=== PATIENT | male | born 1965 | race Caucasian/White ===

== ENCOUNTER 2024-06-12 14:23 | Inpatient (IN) | payer OTHER, SELFPAY ==
--- NOTE | ~2024-06-12 | XR_ITS ---
SMALL BOWEL SERIES Ordering provider: Vincenzo Perera MD History: . SBO, use water soluble contrast via NGT . Comparison: None Technique: The patient was given oral barium. Overhead images were obtained immediately and at 15 min [place] intervals until contrast arrived in the cecum. FINDINGS: CARE MGR FILM: Nonobstructive bowel gas pattern. No organomegaly. No pathologic calcifications. Residual contrast is seen in the urinary bladder. TRANSIT TIME FOR CONTRAST THROUGH THE SMALL BOWEL: 90 minutes which is within normal limits. STOMACH AND DUODENUM: Normal. JEJUNUM AND ILEUM: No intrinsic or extrinsic mass effect, mucosal abnormality, stricture, or sign of obstruction. IMPRESSION: No evidence of obstruction seen. Contrast is seen in the large bowel. Reviewed, dictated and finalized at location A.
--- NOTE | ~2024-06-12 | XR_ITS ---
EXAM: XR abdomen gastric tube insert DATE: 06/12/2024 18:05 HISTORY: ng tubeplacement . COMPARISON: CT abdomen pelvis 06/12/2024. FINDINGS: Mild dependent scar/atelectasis. Right chest pacer/AICD, with intact lead. Intact sternoto my wires. Atrial occlusion device. Mediastinal surgical clips. Cholecystectomy clips. Multiple loops of dilated small bowel in the right abdomen. No organomegaly. No abnormal abdominal calcification. Re gional bones and soft tissues normal for age. NG tube, tip and side port project over the gastric fun dus. IMPRESSION: NG tube, in good position. Reviewed, dictated and finalized at location K. IMPRESSION: NG tube, in good position.
--- NOTE | ~2024-06-12 | CT_ITS ---
EXAMINATION: CT abdomen pelvis w con DATE: 06/12/2024 15:45 INDICATION: lower abd pain, n/v/d TECHNIQUE: Computed tomography (CT) of the abdomen and pelvis was performed with 100 mL Omnipaque-350 intravenous contrast. Automated exposure control and iterative reconstruction technique were employe d. The dose-length product was 401.97 mGy-cm. COMPARISON: None. FINDINGS: Lower thorax: Coronary artery calcifications. Pacer/AICD wire. Mild cardiac megaly. Bilateral symmetr ic gynecomastia. Liver: Subcentimeter right lobe hypodensity, too small to characterize but likely represents a cyst o r hemangioma. Biliary/Gallbladder: Gallbladder is absent. No bile duct dilation. Pancreas: No mass or duct dilation. Spleen: Normal. Adrenals:No mass. Kidneys: No suspicious mass, obstructing stone, or hydronephrosis. Subcentimeter right upper pole hyp odensity, too small to characterize but likely represents a cyst. GI tract: Several loops of dilated small bowel in the left lower abdomen, with adjacent transition po ints (axial image 97/220 and 104/220). Mild small bowel dilation noted proximal to this obstruction, with a gradual transition to normal caliber proximal small bowel. No appendiceal dilation, apparent f atty deposition within the appendiceal mucosa. Mesentery/Peritoneum: No ascites, mass, or free air. Retroperitoneum: No mass. Atherosclerotic calcifications of intra-abdominal arterial vessels. Pelvis: Partially distended urinary bladder with moderate wall thickening. Marked prostatomegaly trac e free pelvic fluid. Soft Tissues: Small uncomplicated fat-containing left inguinal hernia. Surgical clips over the over t he distal left spermatic cord. Bones: No acute osseous finding. IMPRESSION: Findings concerning for a C-loop-type small bowel obstruction, possibly due to adhesion or internal h ernia. No CT evidence of bowel ischemia/infarction. Bladder wall thickening which may be secondary to cystitis or outlet obstruction from prostatomegaly. Results reported telephonically to Zandra Good PA-C by Dr. Dhaliwal at 4:15 PM on 06/12/2024. Reviewed, dictated and finalized at location K. IMPRESSION: Findings concerning for a C-loop-type small bowel obstruction, possibly due to adhesion or internal hernia. No CT evidence of bowel ischemia/infarction. Bladder wall thickening which may be secondary to cystitis or outlet obstructio n from prostatomegaly. Results reported telephonically to Zandra Good PA-C by Dr. Dhaliwal at 4:1 5 PM on 06/12/2024.
[2024-06-12 14:25] VITALS: BP 140/90; PULSE 67; RESP 16; TEMP 36.6; O2SAT 99
--- NOTE | 2024-06-12 15:10 | PC.NURSE ---
Pt. states he is unable to produce a urine sample at this time but will press his call light when he can.
[2024-06-12 15:14] LABS: Basophils Percent Auto 0.2 % (0.2-1.2); Eosinophils Percent Auto 0.1 % (0-4.4); Hematocrit 43.1 % (42.0-52.0); Hemoglobin 13.8 g/dL (14.0-18.0); Immature Granulocyte Absolute 0.05 K/mm3 (0.00-0.031); Immature Granulocyte Percent A 0.5 % (0-0.5); Lymphocytes Absolute Auto 1.18 K/mm3 (0.9-3.2); Lymphocytes Percent Auto 10.9 % (18.3-44.2); Mean Corpuscular Hemoglobin 29.2 pg (26-34); Mean Corpuscular Volume 91.3 fl (80-100); Monocytes Absolute Auto 0.5 K/mm3 (0.1-0.6); Monocytes Percent Auto 4.2 % (2.6-8.5); Neutrophils Absolute Auto 9.1 K/mm3 (1.3-6.7); Neutrophils Percent Auto 84.1 % (45.5-73.1); Platelet Count Result 263 k/mm3 (150-375); Red Blood Count 4.72 M/mm3 (4.6-6.20); Red Cell Distribution Width 13.6 % (11.5-14.5); White Blood Count 10.8 K/mm3 (4.5-10.0)
[2024-06-12 15:25] LABS: Alanine Aminotransferase 25 U/L (6-50); Albumin Level 4.8 g/dL (3.5-5.1); Alkaline Phosphatase 97 U/L (38-126); Anion Gap 10 mmol/L (4-12); Aspartate Amino Transferase 24 U/L (17-59); Bilirubin,Total 0.5 mg/dL (0.2-1.3); Blood Urea Nitrogen 17 mg/dL (9-20); Calcium 9.5 mg/dL (8.4-10.2); Carbon Dioxide 28 mmol/L (22-30); Chloride 103 mmol/L (98-107); Estimated CRCL calculation 69 ml/min; Estimated Glomerular Filt Rate > 60; Glucose 116 mg/dL (65-110); Lipase 51 U/L (23-300); Potassium 3.9 mmol/L (3.4-5.0); Sodium 141 mmol/L (137-145)
[2024-06-12] MEDS: SODIUM CHLORIDE 0.9% IV 1,000 ML 999 ML IV CONT (15:51)
[2024-06-12] MEDS: ONDANSETRON INJ 4 MG/2 ML VIAL IV PUSH ×2 (15:52→17:44)
[2024-06-12] MEDS: MORPHINE SULFATE (*CRX) 4 MG/ML INJ IV PUSH (15:52)
--- NOTE | 2024-06-12 16:04 | ED.ABDPAIN ---
HPI - Abdominal Pain General Chief Complaint: Abdominal Pain <MANDA Vilchis Last Filed: 06/12/24 22:09> Stated Complaint: abd pain <MANDA Vilchis Last Filed: 06/12/24 22:09> Time Seen by Provider: 06/12/24 14:47 <Zandra Good PA-C - Last Filed: 06/12/24 22:09> Source: patient <MANDA Vilchis Last Filed: 06/12/24 22:09> Mode of arrival: ambulatory <MANDA Vilchis Last Filed: 06/12/24 22:09> Limitations: no limitations <MANDA Vilchis Last Filed: 06/12/24 22:09> History of Present Illness HPI narrative: Patient is a 58-year-old male who presents the ED with report of lower abdominal pain. Patient reports pain began this morning upon waking. Has been constant since the onset. Has not tried anything for pain. Worse with movement. He also reports nausea, vomiting, diarrhea. Denies fevers. Denies urinary complaints. Denies history of similar pain. Denies sick contacts or bad food exposure. <MANDA Vilchis Last Filed: 06/12/24 22:09> Related Data Home Medications: Home Medications ?Medication ?Instructions ?Recorded ?Confirmed ?Last Taken ?Type aspirin 81 mg capsule 81 mg PO DAILY 06/12/24 06/12/24 06/12/24 History atorvastatin 80 mg tablet 80 mg PO QPM 06/12/24 06/12/24 06/11/24 History dapagliflozin propanediol 10 mg 10 mg PO DAILY 06/12/24 06/12/24 06/12/24 History tablet (Farxiga) furosemide 20 mg tablet 20 mg PO DAILY 06/12/24 06/12/24 06/12/24 History metoprolol succinate 25 mg 25 mg PO HS 06/12/24 06/12/24 06/11/24 History tablet,extended release 24 hr midodrine 5 mg tablet 5 mg PO TIDWM 06/12/24 06/12/24 06/12/24 History sacubitril 24 mg-valsartan 26 mg 1 tablet PO BID 06/12/24 06/12/24 06/12/24 History tablet (Entresto) sertraline 100 mg tablet 100 mg PO DAILY 06/12/24 06/12/24 06/12/24 History spironolactone 25 mg tablet 25 mg PO DAILY 06/12/24 06/12/24 06/12/24 History <Zandra Good PA-C - Last Filed: 06/12/24 22:09> Allergies/Adverse Reactions: Allergies Allergy/AdvReac Type Severity Reaction Status Date / Time No Known Allergies Allergy Verified 06/12/24 14:29 <Zandra Good PA-C - Last Filed: 06/12/24 22:09> Review of Systems Review of Systems: All systems reviewed & are unremarkable except as noted in HPI. 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 Testicular cancer Hyperlipidemia Coronary artery disease <Zandra Good PA-C - Last Filed: 06/12/24 22:09> Surgical History Surgical History: Surgical History S/P internal cardiac defibrillator procedure <Zandra Good PA-C - Last Filed: 06/12/24 22:09> Social History Social History: Social History Smoking status: Never smoker Alcohol intake: current Drinks per week: 3 Alcohol use details: wine on the weekends Substance use: never Do You Feel Safe in your Home?: Yes Lack of Transportation: No Lack of Food: Never True Current Housing: I Have Housing Concerned About Future Housing: No Difficulty Paying Gas/Electric Bills: No Difficulty Paying for Meds: No Currently Unemployed: No Education: Don't Know Difficulty w/ Childcare or Family Care: No Spiritual care concerns: No <Zandra Good PA-C - Last Filed: 06/12/24 22:09> Exam Narrative: GENERAL: Mildly uncomfortable appearing, well-nourished, non-toxic, in no acute distress. HEAD: Normocephalic, atraumatic. RESPIRATORY: Airway patent, respirations nonlabored. Clear to auscultation bilaterally, no rales, rhonchi, wheezing. CARDIOVASCULAR: Regular rate and rhythm without murmurs, rubs, or gallops. ABDOMINAL: Soft, diffuse tenderness throughout lower abdomen, worst in the left lower quadrant. No significant McBurney's point tenderness, negative Rovsing. Nondistended. Normoactive BS. MUSCULOSKELETAL: Moves all extremities. No gross deformities. SKIN: Warm, dry, normal color. NEURO: A&O X3. Speech clear. PSYCHIATRIC: Appropriate mood and affect. Normal interaction. <Zandra Good PA-C - Last Filed: 06/12/24 22:09> Course SPORTS MARKETING COORDINATOR/PA Physician Supervision For this patient encounter, I reviewed the SPORTS MARKETING COORDINATOR or PA documentation, treatment plan, and medical decision making; and I had [id number] time with this patient. <Domenico Agrawal MD - Last Filed: 06/13/24 19:05> Vital Signs Vital signs: Vital Signs Temperature 97.9 F 06/12/24 14:25 Pulse Rate 67 06/12/24 14:25 Respiratory Rate 16 06/12/24 14:25 Blood Pressure 140/90 06/12/24 14:25 Pulse Oximetry 99 06/12/24 14:25 Oxygen Delivery Room Air 06/12/24 14:25 Temperature 98.3 F 06/13/24 14:00 Pulse Rate 65 06/13/24 14:00 Respiratory Rate 16 06/13/24 14:00 Blood Pressure 148/67 H 06/13/24 14:00 Pulse Oximetry 100 06/13/24 14:00 Oxygen Delivery Room Air 06/12/24 23:28 Fraction of Inspired Oxygen 21 06/12/24 23:28 <Zandra Good PA-C - Last Filed: 06/12/24 22:09> Vital Signs Temperature 97.9 F 06/12/24 14:25 Pulse Rate 67 06/12/24 14:25 Respiratory Rate 16 06/12/24 14:25 Blood Pressure 140/90 06/12/24 14:25 Pulse Oximetry 99 06/12/24 14:25 Oxygen Delivery Room Air 06/12/24 14:25 Temperature 98.3 F 06/13/24 14:00 Pulse Rate 65 06/13/24 14:00 Respiratory Rate 16 06/13/24 14:00 Blood Pressure 148/67 H 06/13/24 14:00 Pulse Oximetry 100 06/13/24 14:00 Oxygen Delivery Room Air 06/12/24 23:28 Fraction of Inspired Oxygen 21 06/12/24 23:28 <Domenico Agrawal MD - Last Filed: 06/13/24 19:05> MDM - Abdominal Pain MDM Narrative Medical decision making narrative: Patient presented to ED with lower abdominal pain that began this morning. Associated with N/V/D. Vital signs are stable upon arrival. Patient mildly uncomfortable appearing. Will give pain control. Cbc with blood cell count of 10.8. Stable H&H. CMP is unremarkable. Stable kidney function. Normal LFTs and lipase. Viral swabs negative. UA w/o evidence of infection. CT scan of abdomen/pelvis was obtained and showing c loop small-bowel obstruction. Likely due to adhesions or internal hernia. No evidence of bowel ischemia or infarction. Lactic acid added on and WNL at 1.4. Patient updated on lab and imaging findings. Discussed NG tube. Patient is agreeable. Patient has history of previous cholecystectomy, denies any other abdominal surgeries. No previous history of bowel obstruction. Discussed case with Dr. Perera, general surgery, will consult. Agrees w/ plan for ng, abx, npo. Zosyn started in the ED. Patient will be admitted for further evaluation. Discussed case with Jeni Dye SPORTS MARKETING COORDINATOR Hospitalist, accepted patient for admission. Patient and family in agreement with plan and need for admission. <Zandra Good PA-C - Last Filed: 06/12/24 22:09> Medical Records Attestation: I reviewed the patient's medical records. <Zandra Good PA-C - Last Filed: 06/12/24 22:09> Lab Data Attestation: I reviewed the patient's lab results. <Zandra Good PA-C - Last Filed: 06/12/24 22:09> Result diagrams: 06/13/24 05:54 06/13/24 05:54 <Zandra Good PA-C - Last Filed: 06/12/24 22:09> Labs: Lab Results 06/12/24 06/12/24 06/12/24 Range/Units 15:07 15:47 17:40 WBC 10.8 H (4.5-10.0) K/mm3 RBC 4.72 (4.6-6.20) M/mm3 Hgb 13.8 L (14.0-18.0) g/dL Hct 43.1 (42.0-52.0) % MCV 91.3 (80-100) fl MCH 29.2 (26-34) pg MCHC 32.0 (32-36) g/dl RDW 13.6 (11.5-14.5) % Plt Count 263 (150-375) k/mm3 MPV 11.0 H (7.4-10.4) fl Immature Gran % (Auto) 0.5 (0-0.5) % Neut % (Auto) 84.1 H (45.5-73.1) % Lymph % (Auto) 10.9 L (18.3-44.2) % [place] % (Auto) 4.2 (2.6-8.5) % Eos % (Auto) 0.1 (0-4.4) % Baso % (Auto) 0.2 (0.2-1.2) % Lymph # (Auto) 1.18 (0.9-3.2) K/mm3 [place] # (Auto) 0.5 (0.1-0.6) K/mm3 Eos # (Auto) 0.0 (0-0.3) K/mm3 Baso # (Auto) 0.0 (0.0-0.1) K/mm3 Abs Immat Gran (auto) 0.05 H (0.00-0.031) K/mm3 Absolute Neuts (auto) 9.1 H (1.3-6.7) K/mm3 Absolute Nucleated RBC 0.000 (0.0-0.012) K/mm3 Nucleated RBC % 0.0 (0.0-0.2) % PT (11.1-14.7) Seconds INR Sodium 141 (137-145) mmol/L Potassium 3.9 (3.4-5.0) mmol/L Chloride 103 (98-107) mmol/L Carbon Dioxide 28 (22-30) mmol/L Anion Gap 10 (4-12) mmol/L BUN 17 (9-20) mg/dL Creatinine 1.04 (0.7-1.3) mg/dL Estim Creat Clear Calc 69 ml/min Estimated GFR > 60 (59 - ) Glucose 116 H (65-110) mg/dL Lactic Acid 1.4 (0.7-2.0) mmol/L Calcium 9.5 (8.4-10.2) mg/dL Total Bilirubin 0.5 (0.2-1.3) mg/dL AST 24 (17-59) U/L ALT 25 (6-50) U/L Alkaline Phosphatase 97 (38-126) U/L Total Protein 8.0 (6.3-8.2) g/dL Albumin 4.8 (3.5-5.1) g/dL Lipase 51 (23-300) U/L Urine Color Yellow (Yellow) Urine Appearance Clear (Clear) Urine pH 6.0 (5.0-9.0) Ur Specific L[place] > 1.045 H (1.001-1.035) Urine Protein Negative (Negative) mg/dL Urine Glucose (UA) 3+ H (Negative) mg/dL Urine Ketones Negative (Negative) mg/dL Ur Blood (Man) Negative (Negative) Urine Nitrate Negative (Negative) Urine Bilirubin Negative (Negative) Urine Urobilinogen 0.2 (<2.0) mg/dL Leukocyte Esterase Rfl Negative (Negative) BRENT/UL Influenza A (RT-PCR) Negative (Negative) Influenza B (RT-PCR) Negative (Negative) RSV (RT-PCR) Negative (Negative) SARS-CoV-2 RNA (RT-PCR) Negative (Negative) Blood Type Antibody Screen 06/13/24 Range/Units 05:54 WBC 6.9 (4.5-10.0) K/mm3 RBC 4.18 L (4.6-6.20) M/mm3 Hgb 12.1 L (14.0-18.0) g/dL Hct 39.0 L (42.0-52.0) % MCV 93.3 (80-100) fl MCH 28.9 (26-34) pg MCHC 31.0 L (32-36) g/dl RDW 14.0 (11.5-14.5) % Plt Count 209 (150-375) k/mm3 MPV 10.7 H (7.4-10.4) fl Immature Gran % (Auto) 0.3 (0-0.5) % Neut % (Auto) 67.4 (45.5-73.1) % Lymph % (Auto) 22.2 (18.3-44.2) % [place] % (Auto) 8.9 H (2.6-8.5) % Eos % (Auto) 0.9 (0-4.4) % Baso % (Auto) 0.3 (0.2-1.2) % Lymph # (Auto) 1.54 (0.9-3.2) K/mm3 [place] # (Auto) 0.6 (0.1-0.6) K/mm3 Eos # (Auto) 0.1 (0-0.3) K/mm3 Baso # (Auto) 0.0 (0.0-0.1) K/mm3 Abs Immat Gran (auto) 0.02 (0.00-0.031) K/mm3 Absolute Neuts (auto) 4.7 (1.3-6.7) K/mm3 Absolute Nucleated RBC 0.000 (0.0-0.012) K/mm3 Nucleated RBC % 0.0 (0.0-0.2) % PT 15.2 H (11.1-14.7) Seconds INR 1.2 Sodium 142 (137-145) mmol/L Potassium 4.2 (3.4-5.0) mmol/L Chloride 108 H (98-107) mmol/L Carbon Dioxide 26 (22-30) mmol/L Anion Gap 8 (4-12) mmol/L BUN 15 (9-20) mg/dL Creatinine 1.04 (0.7-1.3) mg/dL Estim Creat Clear Calc 69 ml/min Estimated GFR > 60 (59 - ) Glucose 96 (65-110) mg/dL Lactic Acid (0.7-2.0) mmol/L Calcium 8.4 (8.4-10.2) mg/dL Total Bilirubin 0.5 (0.2-1.3) mg/dL AST 22 (17-59) U/L ALT 20 (6-50) U/L Alkaline Phosphatase 79 (38-126) U/L Total Protein 6.0 L (6.3-8.2) g/dL Albumin 3.9 (3.5-5.1) g/dL Lipase (23-300) U/L Urine Color (Yellow) Urine Appearance (Clear) Urine pH (5.0-9.0) Ur Specific [place] (1.001-1.035) Urine Protein (Negative) mg/dL Urine Glucose (UA) (Negative) mg/dL Urine Ketones (Negative) mg/dL Ur Blood (Man) (Negative) Urine Nitrate (Negative) Urine Bilirubin (Negative) Urine Urobilinogen (<2.0) mg/dL Leukocyte Esterase Rfl (Negative) BRENT/UL Influenza A (RT-PCR) (Negative) Influenza B (RT-PCR) (Negative) RSV (RT-PCR) (Negative) SARS-CoV-2 RNA (RT-PCR) (Negative) Blood Type A Positive Antibody Screen Negative <Zandra Good PA-C - Last Filed: 06/12/24 22:09> Lab Results 06/12/24 06/12/24 06/12/24 Range/Units 15:07 15:47 17:40 WBC 10.8 H (4.5-10.0) K/mm3 RBC 4.72 (4.6-6.20) M/mm3 Hgb 13.8 L (14.0-18.0) g/dL Hct 43.1 (42.0-52.0) % MCV 91.3 (80-100) fl MCH 29.2 (26-34) pg MCHC 32.0 (32-36) g/dl RDW 13.6 (11.5-14.5) % Plt Count 263 (150-375) k/mm3 MPV 11.0 H (7.4-10.4) fl Immature Gran % (Auto) 0.5 (0-0.5) % Neut % (Auto) 84.1 H (45.5-73.1) % Lymph % (Auto) 10.9 L (18.3-44.2) % [place] % (Auto) 4.2 (2.6-8.5) % Eos % (Auto) 0.1 (0-4.4) % Baso % (Auto) 0.2 (0.2-1.2) % Lymph # (Auto) 1.18 (0.9-3.2) K/mm3 [place] # (Auto) 0.5 (0.1-0.6) K/mm3 Eos # (Auto) 0.0 (0-0.3) K/mm3 Baso # (Auto) 0.0 (0.0-0.1) K/mm3 Abs Immat Gran (auto) 0.05 H (0.00-0.031) K/mm3 Absolute Neuts (auto) 9.1 H (1.3-6.7) K/mm3 Absolute Nucleated RBC 0.000 (0.0-0.012) K/mm3 Nucleated RBC % 0.0 (0.0-0.2) % PT (11.1-14.7) Seconds INR Sodium 141 (137-145) mmol/L Potassium 3.9 (3.4-5.0) mmol/L Chloride 103 (98-107) mmol/L Carbon Dioxide 28 (22-30) mmol/L Anion Gap 10 (4-12) mmol/L BUN 17 (9-20) mg/dL Creatinine 1.04 (0.7-1.3) mg/dL Estim Creat Clear Calc 69 ml/min Estimated GFR > 60 (59 - ) Glucose 116 H (65-110) mg/dL Lactic Acid 1.4 (0.7-2.0) mmol/L Calcium 9.5 (8.4-10.2) mg/dL Total Bilirubin 0.5 (0.2-1.3) mg/dL AST 24 (17-59) U/L ALT 25 (6-50) U/L Alkaline Phosphatase 97 (38-126) U/L Total Protein 8.0 (6.3-8.2) g/dL Albumin 4.8 (3.5-5.1) g/dL Lipase 51 (23-300) U/L Urine Color Yellow (Yellow) Urine Appearance Clear (Clear) Urine pH 6.0 (5.0-9.0) Ur Specific [place] > 1.045 H (1.001-1.035) Urine Protein Negative (Negative) mg/dL Urine Glucose (UA) 3+ H (Negative) mg/dL Urine Ketones Negative (Negative) mg/dL Ur Blood (Man) Negative (Negative) Urine Nitrate Negative (Negative) Urine Bilirubin Negative (Negative) Urine Urobilinogen 0.2 (<2.0) mg/dL Leukocyte Esterase Rfl Negative (Negative) BRENT/UL Influenza A (RT-PCR) Negative (Negative) Influenza B (RT-PCR) Negative (Negative) RSV (RT-PCR) Negative (Negative) SARS-CoV-2 RNA (RT-PCR) Negative (Negative) Blood Type Antibody Screen 06/13/24 Range/Units 05:54 WBC 6.9 (4.5-10.0) K/mm3 RBC 4.18 L (4.6-6.20) M/mm3 Hgb 12.1 L (14.0-18.0) g/dL Hct 39.0 L (42.0-52.0) % MCV 93.3 (80-100) fl MCH 28.9 (26-34) pg MCHC 31.0 L (32-36) g/dl RDW 14.0 (11.5-14.5) % Plt Count 209 (150-375) k/mm3 MPV 10.7 H (7.4-10.4) fl Immature Gran % (Auto) 0.3 (0-0.5) % Neut % (Auto) 67.4 (45.5-73.1) % Lymph % (Auto) 22.2 (18.3-44.2) % [place] % (Auto) 8.9 H (2.6-8.5) % Eos % (Auto) 0.9 (0-4.4) % Baso % (Auto) 0.3 (0.2-1.2) % Lymph # (Auto) 1.54 (0.9-3.2) K/mm3 [place] # (Auto) 0.6 (0.1-0.6) K/mm3 Eos # (Auto) 0.1 (0-0.3) K/mm3 Baso # (Auto) 0.0 (0.0-0.1) K/mm3 Abs Immat Gran (auto) 0.02 (0.00-0.031) K/mm3 Absolute Neuts (auto) 4.7 (1.3-6.7) K/mm3 Absolute Nucleated RBC 0.000 (0.0-0.012) K/mm3 Nucleated RBC % 0.0 (0.0-0.2) % PT 15.2 H (11.1-14.7) Seconds INR 1.2 Sodium 142 (137-145) mmol/L Potassium 4.2 (3.4-5.0) mmol/L Chloride 108 H (98-107) mmol/L Carbon Dioxide 26 (22-30) mmol/L Anion Gap 8 (4-12) mmol/L BUN 15 (9-20) mg/dL Creatinine 1.04 (0.7-1.3) mg/dL Estim Creat Clear Calc 69 ml/min Estimated GFR > 60 (59 - ) Glucose 96 (65-110) mg/dL Lactic Acid (0.7-2.0) mmol/L Calcium 8.4 (8.4-10.2) mg/dL Total Bilirubin 0.5 (0.2-1.3) mg/dL AST 22 (17-59) U/L ALT 20 (6-50) U/L Alkaline Phosphatase 79 (38-126) U/L Total Protein 6.0 L (6.3-8.2) g/dL Albumin 3.9 (3.5-5.1) g/dL Lipase (23-300) U/L Urine Color (Yellow) Urine Appearance (Clear) Urine pH (5.0-9.0) Ur Specific [place] (1.001-1.035) Urine Protein (Negative) mg/dL Urine Glucose (UA) (Negative) mg/dL Urine Ketones (Negative) mg/dL Ur Blood (Man) (Negative) Urine Nitrate (Negative) Urine Bilirubin (Negative) Urine Urobilinogen (<2.0) mg/dL Leukocyte Esterase Rfl (Negative) BRENT/UL Influenza A (RT-PCR) (Negative) Influenza B (RT-PCR) (Negative) RSV (RT-PCR) (Negative) SARS-CoV-2 RNA (RT-PCR) (Negative) Blood Type A Positive Antibody Screen Negative <Domenico Agrawal MD - Last Filed: 06/13/24 19:05> Imaging Data Attestation: I personally reviewed and interpreted this imaging study as follows: <Zandra Good PA-C - Last Filed: 06/12/24 22:09> Radiologist's impression: ITS Impressions Abdomen/Pelvis CT 06/12/24 16:01 IMPRESSION: Findings concerning for a C-loop-type small bowel obstruction, possibly due to adhesion or internal hernia. No CT evidence of bowel ischemia/infarction. Bladder wall thickening which may be secondary to cystitis or outlet obstruction from prostatomegaly. Results reported telephonically to Zandra Good PA-C by Dr. Dhaliwal at 4:15 PM on 06/12/2024. Abdomen X-Ray 06/12/24 19:20 IMPRESSION: NG tube, in good position. <Zandra Good PA-C - Last Filed: 06/12/24 22:09> ITS Impressions Abdomen/Pelvis CT 06/12/24 16:01 IMPRESSION: Findings concerning for a C-loop-type small bowel obstruction, possibly due to adhesion or internal hernia. No CT evidence of bowel ischemia/infarction. Bladder wall thickening which may be secondary to cystitis or outlet obstruction from prostatomegaly. Results reported telephonically to Zandra Good PA-C by Dr. Dhaliwal at 4:15 PM on 06/12/2024. Abdomen X-Ray 06/12/24 19:20 IMPRESSION: NG tube, in good position. <Domenico Agrawal MD - Last Filed: 06/13/24 19:05> Discharge Plan Discharge Clinical Impression: Small bowel obstruction <Zandra Good PA-C - Last Filed: 06/12/24 22:09> Patient Disposition: Still a Patient <Zandra Good PA-C - Last Filed: 06/12/24 22:09> Condition: Stable <Zandra Good PA-C - Last Filed: 06/12/24 22:09>
--- NOTE | 2024-06-12 16:15 | PC.NURSE ---
Pt. vomited x1 onto the floor. Vomit cleaned. Pt. given an emesis bag. Pt. has his call light and educated to press it again if he has another episode of emesis. Pt. given a urinal and is still aware that a urine sample is needed. Fluid bolus infusing.
[2024-06-12 16:30] LABS: Influenza A QL RT-PCR Negative (Negative); Influenza B QL RT-PCR Negative (Negative); RSV RNA, RT-PCR Negative (Negative); SARS-CoV-2 RNA PCR Negative (Negative)
[2024-06-12] MEDS: HYDROmorphone HCL INJ (*CRX) 2 MG/ML VIAL 0.5 MG IV PUSH (17:44)
[2024-06-12 17:48] LABS: Add Urine Microscopic? NO; Appearance Urine Clear (Clear); Bilirubin Urine Negative (Negative); Blood Urine Negative (Negative); Color Urine Yellow (Yellow); Glucose Urine UA 3+ mg/dL (Negative); Ketones Urine Negative (Negative); Leukocyte Esterase Ur Negative LEU/UL (Negative); Nitrate Urine Negative (Negative); Protein Urine Negative (Negative); Specific Grav Ur > 1.045 (1.001-1.035); Urobilinogen Urine 0.2 mg/dL (<2.0)
[2024-06-12 17:55] LABS: Lactic Acid Reflex 1.4 mmol/L (0.7-2.0)
[2024-06-12 17:58] VITALS: BP 128/71; PULSE 71; RESP 16; O2SAT 100
[2024-06-12] MEDS: PIPERACILLN/TAZ 3.375GM/NS50ML 3.375 GM/50 ML BAG IVPB (18:03)
--- NOTE | 2024-06-12 18:03 | PC.NURSE ---
Per IRVIN Mccurdy, pt. does not need blood cultures prior to starting antibiotics.
[2024-06-12 18:48] VITALS: BP 128/76; PULSE 71; RESP 16; O2SAT 100
--- NOTE | 2024-06-12 19:18 | P.CONS_ITS ---
Assessment and Plan Assessment and plan (1) Small bowel obstruction: Code(s): K56.609 - Unspecified intestinal obstruction, unspecified as to partial versus complete obstruction Status: Acute Assessment and Plan: Patient likely has a partial small-bowel obstruction given he has been having some diarrhea this afternoon. CT suggested possible closed loop obstruction. Lactic acid level is normal. Abdominal exam is relatively benign. Will follow lactic acid levels and started on IV antibiotics. NG tube nasogastric decompression. Will get a water-soluble small bowel follow-through study tomorrow morning. Continue IV fluids for hydration. SCDs for DVT prophylaxis for now and hold on any Lovenox or subQ heparin. IV Protonix for GI prophylaxis. No evidence of acute surgical abdomen at this time. HPI Data of Consult Date/Time: 06/12/24 19:18 Requesting Physician: Genna Alberto MD Primary Care Provider: UNKNOWN,DOCTOR Consult Narrative Reason for consult: Small-bowel obstruction Narrative: Jamie Vargas is a 58 year old male who presented to the [facility] Emergency Room today with a 1 day history of worsening abdominal pain associated with nausea vomiting. He did have 3 episodes of a small amount of diarrhea through the day. He denies any sick contacts not eaten any questionable foods. His only past abdominal surgical history was a laparoscopic cholecystectomy. He has never had symptoms of a bowel obstruction in the past. White blood cell count was normal. Lactic acid is normal. CT scan abdomen pelvis was performed showing dilated loops of small bowel in the mid and left side of the abdomen with a possible closed loop transition point small-bowel obstruction. Patient states that his pain and nausea is improved after placement of nasogastric tube for decompression. Currently his pain is only a 2 or 3 on a scale of 10. He has had previous coronary artery bypass grafting and placement of a implantable defibrillator. He does not take any systemic blood thinners. Review of Systems 2 Review of Systems: The remainder of the review of systems to include constitutional, HEENT, cardiovascular, respiratory, GI, , integumentary, musculoskeletal, endocrine, immunologic, hematologic, psychiatric, and neurologic are all negative except for which is mentioned above in the HPI. Meds Home Medications and Allergies Allergies Allergy/AdvReac Type Severity Reaction Status Date / Time No Known Allergies Allergy Verified 06/12/24 14:29 Vital Signs Vital Signs - 24 hr 06/12/24 14:25 06/12/24 17:58 06/12/24 18:48 Temperature 36.6 C Pulse Rate 67 71 71 Respiratory Rate 16 16 16 Blood Pressure 140/90 128/71 128/76 Pulse Oximetry 99 100 100 Oxygen Delivery Room Air Exam 2 Const: General: comfortable and no acute distress HENMT: Ears: TM's normal bilaterally Face/Nose/Sinus: Normal nares present (NG tube in place) Mouth: Yes moist mucous membranes Eyes: General: appearance normal, both eyes and all related structures S clera: sclerae normal Pupils: Equal, round and reactive pupils present E OM: EOMs intact bilaterally Neck: Neck: supple and no JVD Chest: Other: Left upper anterior chest implanted defibrillator. Resp: Effort & Inspection: normal respiratory effort Auscultation: clear to auscultation bilaterally Cardio: Rate: regular rate Rhythm: regular rhythm GI: Other: Abdomen is soft and mildly distended. Minimal tenderness to palpation on left side of the abdomen. No guarding or rebound tenderness. Well-healed scars from a laparoscopic cholecystectomy without port site incisional hernias. No primary ventral hernias. No peritoneal signs. Skin: General skin exam: normal color and no rashes or lesions noted Neuro: General: gait normal Speech: normal speech Motor exam (neuro): 5 /5 motor strength present throughout Sensory Exam: normal sensation Extrem: General: normal to inspection Psych: Mental Status: mental status grossly normal Affect: normal affect Results Labs 06/12/24 15:07 06/12/24 15:07 Labs: Short CBC 06/12/24 Range/Units 15:07 WBC 10.8 H (4.5-10.0) K/mm3 Hgb 13.8 L (14.0-18.0) g/dL Hct 43.1 (42.0-52.0) % Plt Count 263 (150-375) k/mm3 BMP 06/12/24 15:07 Sodium 141 Potassium 3.9 Chloride 103 Carbon Dioxide 28 BUN 17 Creatinine 1.04 Glucose 116 H Calcium 9.5 Liver Function 06/12/24 Range/Units 15:07 Total Bilirubin 0.5 (0.2-1.3) mg/dL AST 24 (17-59) U/L ALT 25 (6-50) U/L Alkaline Phosphatase 97 (38-126) U/L Albumin 4.8 (3.5-5.1) g/dL Urine 06/12/24 Range/Units 17:40 Urine Color Yellow (Yellow) Urine Appearance Clear (Clear) Urine pH 6.0 (5.0-9.0) Ur Specific [place] > 1.045 H (1.001-1.035) Urine Protein Negative (Negative) mg/dL Urine Glucose (UA) 3+ H (Negative) mg/dL Imaging Radiologist's impression: CT Scan Report Signed Patient: Jamie Vargas : 1965 MR#: [id number] Age: 58 Acct:[id number] Loc: [facility] ADM Date: 06/12/24Attending Dr: Ordering Physician: Zandra Good PA-C Date of Service: 06/12/24 Procedure(s): CT abdomen pelvis w con Accession Number(s): [id number] cc: Zandra Good PA-C; UNKNOWN,DOCTOR~ EXAMINATION: CT abdomen pelvis w con DATE: 06/12/2024 15:45 INDICATION: lower abd pain, n/v/d TECHNIQUE: Computed tomography (CT) of the abdomen and pelvis was performed with 100 mL Omnipaque-350 intravenous contrast. Automated exposure control and iterative reconstruction technique were employed. The dose-length product was 401.97 mGy-cm. COMPARISON: None. FINDINGS: Lower thorax: Coronary artery calcifications. Pacer/AICD wire. Mild cardiac megaly. Bilateral symmetric gynecomastia. Liver: Subcentimeter right lobe hypodensity, too small to characterize but likely represents a cyst or hemangioma. Biliary/Gallbladder: Gallbladder is absent. No bile duct dilation. Pancreas: No mass or duct dilation. Spleen: Normal. Adrenals:No mass. Kidneys: No suspicious mass, obstructing stone, or hydronephrosis. Subcentimeter right upper pole hypodensity, too small to characterize but likely represents a cyst. GI tract: Several loops of dilated small bowel in the left lower abdomen, with adjacent transition points (axial image 97/220 and 104/220). Mild small bowel dilation noted proximal to this obstruction, with a gradual transition to normal caliber proximal small bowel. No appendiceal dilation, apparent fatty deposition within the appendiceal mucosa. Mesentery/Peritoneum: No ascites, mass, or free air. Retroperitoneum: No mass. Atherosclerotic calcifications of intra-abdominal arterial vessels. Pelvis: Partially distended urinary bladder with moderate wall thickening. Marked prostatomegaly trace free pelvic fluid. Soft Tissues: Small uncomplicated fat-containing left inguinal hernia. Surgical clips over the over the distal left spermatic cord. Bones: No acute osseous finding. IMPRESSION: Findings concerning for a C-loop-type small bowel obstruction, possibly due to adhesion or internal hernia. No CT evidence of bowel ischemia/infarction. Bladder wall thickening which may be secondary to cystitis or outlet obstruction from prostatomegaly. Results reported telephonically to Zandra Good PA-C by Dr. Dhaliwal at 4:15 PM on 06/12/2024. Reviewed, dictated and finalized at location K. Please be advised this is a medical document. It is intended for [id number] communication. It is written in medical language and may contain unfamiliar abbreviations or verbiage. Medical documents are intended to carry relevant information, facts as evident, and the clinical opinion of the practitioner at the time of the encounter. This report may have been done utilizing a voice recognition system. Attempts have been made to correct errors. However, there may be uncorrected grammatical, spelling, and recognition errors present. The file time of this note does not necessarily represent the time of service. Dictated By: Chao Dhaliwal MD 06/12/24 8211 Signed By: <Electronically signed by Chao Dhaliwal MD in [place]>
--- NOTE | 2024-06-12 19:47 | P.HP_ITS ---
H&P: HPI History of Present Illness Date/Time: 06/12/24 19:47 Chief Complaint: Abdominal pain Narrative: This is a very pleasant 58-year-old male patient with past medical history of coronary artery disease status post RI with PCI x2 and a 1 vessel bypass, testicular cancer, hyperlipidemia, placement of internal defibrillator and prior cholecystectomy who comes to the emergency room today with complaints of a bdominal pain. Patient endorses that he was in his normal state of health and this morning woke up with a persistent, aching lower abdominal pain that did not radiate but remains stationary. He denied any fevers or urinary symptoms of burning, urgency, frequency or hematuria. He did endorse some nausea/vomiting/diarrhea. He denied any melenous appearing stools, hematochezia and no hematemesis. He is followed by [employer] set up [employer] Dr. Forman in [place], and reports he last had an echocardiogram in April of 2024. He is unsure of what his ejection fraction was but does note that he had a leaky valve and was supposed to have a VALERIA me this coming Friday. Patient is very knowledgeable of his history and has good recall. He is able to tell me that he takes medications of metoprolol, midodrine, spironolactone, aspirin, atorvastatin, Entresto, Farxiga and Lasix and endorses compliance without missing any doses. He is a nonsmoker, he does not partake of any drugs and he does admit to a few glasses of wine on the weekends. In the emergency room a workup was performed. This consisted of labs including CBC and metabolic panel that are unremarkable. Lactic acid is noted to be 1.4 which lower suspicion ischemic causation. CT abdomen and pelvis was performed that shows concern for AC loop type small-bowel obstruction secondary to possible adhesions or internal hernia. There was noted no evidence of ischemia or infarction. There was also evidence of bladder wall thickening secondary to cystitis or possible outlet obstruction. Patient's urinalysis showing and specific gravity greater than 1.045 and 3+ glucose in the urine otherwise unremarkable. the ER provider spoke with Dr. Perera from general surgery who agrees to consult and see patient. He is placed on Protonix IV push daily, Zosyn q.6 hours and IV fluids of normal saline at 125 mL/hour. An NG tube is placed to low wall intermittent suction and patient is made NPO. He is being admitted at this time to the hospitalist service for continued monitoring, management and development of definitive plan with surgery's assistance. Review of Systems Review of Systems: All systems reviewed & are unremarkable except as noted in HPI and below [facility] Past Medical History Medical History (Updated 06/12/24 @ 20:07 by PAMELA Palacios) FHx: cholecystectomy Coronary artery disease of bypass graft of tribal heart with stable angina pectoris Testicular cancer Hyperlipidemia Coronary artery disease Surgical History Surgical History (Updated 06/12/24 @ 19:55 by PAMELA Palacios) S/P internal cardiac defibrillator procedure Social History Social History (Updated 06/12/24 @ 19:56 by PAMELA Palacios) Smoking status: Never smoker Alcohol intake: current Drinks per week: 3 Alcohol use details: wine on the weekends Substance use: never Meds Home Medications and Allergies Allergies Allergy/AdvReac Type Severity Reaction Status Date / Time No Known Allergies Allergy Verified 06/12/24 14:29 Vital Signs Vital Signs - 24 hr 06/12/24 14:25 06/12/24 17:58 06/12/24 18:48 Temperature 97.9 F Pulse Rate 67 71 71 Respiratory Rate 16 16 16 Blood Pressure 140/90 128/71 128/76 Pulse Oximetry 99 100 100 Oxygen Delivery Room Air Exam Const: General: uncomfortable Other: male patient sitting up in stretcher at this time and no acute distress but does obviously feel uncomfortable. HENMT: Face/Nose/Sinus: Normal nares present Mouth: Yes dry mucous membranes Other: NG tube present Eyes: General: appearance normal, both eyes and all related structures Neck: Neck: supple and no JVD Resp: Effort & Inspection: normal respiratory effort Auscultation: clear to auscultation bilaterally Cardio: Rate: regular rate Rhythm: regular rhythm Heart sounds: no gall ops, Murmur heart sound present and no rubs Other: grade 2-3 diastolic GI: GI Palp: Yes Soft to palpation and Yes Tenderness to palpation present (GI) ( mild tenderness periumbilical) Auscultation: abnormal bowel sounds ( decreased throughout) Other: flat Skin: General skin exam: normal color, no rashes or lesions noted and no erythema Wounds: no wounds Neuro: General: gait normal Speech: normal speech Motor exam (neuro): 5/5 motor strength present throughout and Normal motor muscle tone present throughout Sensory Exam: normal sensation Extrem: General: normal to inspection, no edema and no pedal edema Other: patient freely and equally moves all extremities well without deficit. Psych: Mental Status: mental status grossly normal Affect: normal affect H&P: Results Labs Labs: Short CBC 06/12/24 Range/Units 15:07 WBC 10.8 H (4.5-10.0) K/mm3 Hgb 13.8 L (14.0-18.0) g/dL Hct 43.1 (42.0-52.0) % Plt Count 263 (150-375) k/mm3 BMP 06/12/24 15:07 Sodium 141 Potassium 3.9 Chloride 103 Carbon Dioxide 28 BUN 17 Creatinine 1.04 Glucose 116 H Calcium 9.5 Liver Function 06/12/24 Range/Units 15:07 Total Bilirubin 0.5 (0.2-1.3) mg/dL AST 24 (17-59) U/L ALT 25 (6-50) U/L Alkaline Phosphatase 97 (38-126) U/L Albumin 4.8 (3.5-5.1) g/dL Urine 06/12/24 Range/Units 17:40 Urine Color Yellow (Yellow) Urine Appearance Clear (Clear) Urine pH 6.0 (5.0-9.0) Ur Specific [place] > 1.045 H (1.001-1.035) Urine Protein Negative (Negative) mg/dL Urine Glucose (UA) 3+ H (Negative) mg/dL Assessment and Plan Assessment and plan (1) Small bowel obstruction: Code(s): K56.609 - Unspecified intestinal obstruction, unspecified as to partial versus complete obstruction Status: Acute Assessment and Plan: * as evidence by CT scan showing C loop type small-bowel obstruction secondary to possible adhesions or internal hernia. No noted evidence of ischemia or infarction. There is bladder wall thickening secondary to cystitis or bladder Outlet obstruction. * General surgery Dr. Perera is consulted and will manage along with medicine. * NPO * Protonix 40 mg IVP daily * Zosyn Q6 hrs per surgery * IVF for hydration w/NS at 125 ml/hr * NG to LWIS. * PRN anti-emetics and pain meds. * Monitor and trend labs and VS. * SBFT ordered by surgery. (2) Coronary artery disease: Code(s): I25.10 - Atherosclerotic heart disease of tribal coronary artery without angina pectoris Status: Chronic Assessment and Plan: * Patient with history of coronary artery disease and PCI x2 as well as CABG x1 * patient was supposed to have VALERIA on Friday. * Will request records from [facility] recs as pt has extensive cardiac history. * Consider repeating ECHO * Consider Cardiology consult if pts condition deteriorates. * Telemetry * Obtain EKG given pt's extensive cardiac hx. (3) Hyperlipidemia: Code(s): E78.5 - Hyperlipidemia, unspecified Status: Chronic Assessment and Plan: * Continue Statin when able to take in po. * When able to eat, initiate heart healthy diet. Quality VTE Prophylaxis VTE prophylaxis: mechanical ordered Hospitalist MIPS Advance Care Plan I have confirmed that the patient's Advanced Care Plan is present, code status is documented, or surrogate decision maker is listed in patient medical record.: Yes Medication Reconciliation I have utilized all available resources to obtain, update and review the patients current medications (includes all prescriptions, OTC, herbals, cannabis, and nutritional supplements).: Yes
--- NOTE | 2024-06-12 20:07 | ECG_ITS ---
Test Date: 2024-06-13 07:34:49 Measurements Intervals [place] Rate: 59 P: -71 VT: 166 QRS: -21 QRSD: 140 T: -24 QT: 423 QTc: 422 Interpretive Statements SINUS BRADYCARDIA INTRAVENTRICULAR CONDUCTION DELAY [130+ ms QRS DURATION] INFERIOR MYOCARDIAL INFARCTION , PROBABLY OLD [40+ ms Q WAVE AND/OR ST/T ABNORMALITY IN II/aVF] No previous ECG available for comparison Electronically Signed On 06-13-2024 16:05:18 CDT by Nayeli Fraga
[2024-06-12] MEDS: PANTOPRAZOLE SODIUM IV 40 MG VIAL IV PUSH (20:18)
[2024-06-12] MEDS: SODIUM CHLORIDE 0.9% IV 1,000 ML 125 ML IV CONT (20:18)
--- NOTE | 2024-06-12 20:24 | ADMGEN ---
This patient, Jamie Vargas, was admitted to 3 [facility] Surg Room 327-01. Patient/family oriented to hospital policies and general routines including ID bracelet, bed and alarms, visiting hours, pain management, procedures, bathroom and other care routines, personal items, smoking policy, room service/diet, and visiting hours. Information on how to activate the Rapid Response Team has been discussed. Patient/Family are encouraged to report perceived risks to care and to ask questions if they do not understand what they are told or what they should do.
[2024-06-12 20:30] VITALS: BMI 24.3
[2024-06-12 21:06] VITALS: BP 111/59; PULSE 70; RESP 16; TEMP 36.4; O2SAT 97
[2024-06-12] MEDS: HYDROmorphone HCL INJ (*CRX) 2 MG/ML VIAL 1 MG IV PUSH (21:22)
[2024-06-12 23:28] VITALS: PULSE 66; RESP 20; O2SAT 96
[2024-06-13] MEDS: SODIUM CHLORIDE 0.9% IV 1,000 ML 125 ML IV CONT (04:55)
[2024-06-13] MEDS: PIPERACILLN/TAZ 3.375GM/NS50ML 3.375 GM/50 ML BAG IVPB ×3 (05:12→12:10)
[2024-06-13 05:49] VITALS: BP 102/58
[2024-06-13 06:07] VITALS: PULSE 63; RESP 18; TEMP 37; O2SAT 95
[2024-06-13 06:18] LABS: Basophils Percent Auto 0.3 % (0.2-1.2); Eosinophils Absolute Auto 0.1 K/mm3 (0-0.3); Eosinophils Percent Auto 0.9 % (0-4.4); Hemoglobin 12.1 g/dL (14.0-18.0); Immature Granulocyte Absolute 0.02 K/mm3 (0.00-0.031); Immature Granulocyte Percent A 0.3 % (0-0.5); Lymphocytes Absolute Auto 1.54 K/mm3 (0.9-3.2); Lymphocytes Percent Auto 22.2 % (18.3-44.2); Mean Corpuscular Hemoglobin 28.9 pg (26-34); Mean Corpuscular Volume 93.3 fl (80-100); Mean Platelet Volume 10.7 fl (7.4-10.4); Monocytes Absolute Auto 0.6 K/mm3 (0.1-0.6); Monocytes Percent Auto 8.9 % (2.6-8.5); Neutrophils Absolute Auto 4.7 K/mm3 (1.3-6.7); Neutrophils Percent Auto 67.4 % (45.5-73.1); Platelet Count Result 209 k/mm3 (150-375); Red Blood Count 4.18 M/mm3 (4.6-6.20); White Blood Count 6.9 K/mm3 (4.5-10.0)
[2024-06-13 06:35] LABS: Alanine Aminotransferase 20 U/L (6-50); Albumin Level 3.9 g/dL (3.5-5.1); Alkaline Phosphatase 79 U/L (38-126); Anion Gap 8 mmol/L (4-12); Aspartate Amino Transferase 22 U/L (17-59); Bilirubin,Total 0.5 mg/dL (0.2-1.3); Blood Urea Nitrogen 15 mg/dL (9-20); Calcium 8.4 mg/dL (8.4-10.2); Carbon Dioxide 26 mmol/L (22-30); Chloride 108 mmol/L (98-107); Estimated CRCL calculation 69 ml/min; Estimated Glomerular Filt Rate > 60; Glucose 96 mg/dL (65-110); Potassium 4.2 mmol/L (3.4-5.0); Sodium 142 mmol/L (137-145)
[2024-06-13 06:36] LABS: INR 1.2; Prothrombin Time 15.2 Seconds (11.1-14.7)
[2024-06-13] MEDS: PANTOPRAZOLE SODIUM IV 40 MG VIAL IV PUSH (09:02)
--- NOTE | 2024-06-13 13:11 | P.PNIM_ITS ---
Progress Note: A&P Assessment and Plan (1) Small bowel obstruction: Code(s): K56.609 - Unspecified intestinal obstruction, unspecified as to partial versus complete obstruction Status: Acute Assessment and Plan: * as evidence by CT scan showing C loop type small-bowel obstruction secondary to possible adhesions or internal hernia. No noted evidence of ischemia or infarction. There is bladder wall thickening secondary to cystitis or bladder Outlet obstruction. * General surgery Dr. Perera is consulted and will manage along with medicine. * NPO * Protonix 40 mg IVP daily * Zosyn Q6 hrs per surgery * IVF for hydration w/NS at 125 ml/hr * NG to LWIS. * PRN anti-emetics and pain meds. * Monitor and trend labs and VS. * SBFT ordered by surgery. * * surgery is following * follow lactic acid levels, started on IV antibiotics-continue * NG tube nasogastric decompression * Continue IV fluids for hydration. * no lovenox/heparin for now- SCD for dvt prophylaxis * ok to advance diet to full liquid per surgery today and anticipate discharge tomorrow if stable/imporved (2) Coronary artery disease: Code(s): I25.10 - Atherosclerotic heart disease of [place] coronary artery without angina pectoris Status: Chronic Assessment and Plan: * Patient with history of coronary artery disease and PCI x2 as well as CABG x1 * patient was supposed to have VALERIA on Friday. * Will request records from [facility] recs as pt has extensive cardiac history. * Consider repeating ECHO * Consider Cardiology consult if pts condition deteriorates. * Telemetry * Obtain EKG given pt's extensive cardiac hx. (3) Hyperlipidemia: Code(s): E78.5 - Hyperlipidemia, unspecified Status: Chronic Assessment and Plan: * Continue Statin when able to take in po. * When able to eat, initiate heart healthy diet. Time Spent With Patient Time with patient: 25 - 35 minutes Subjective Date/time seen: 06/13/24 13:11 Interval history: 58-year-old male with PMH/of coronary artery disease status post LA with PCI x2 and a 1 vessel bypass, testicular cancer, hyperlipidemia, placement of internal defibrillator and prior cholecystectomy admitted for complaints of abdominal pain. Of note, he is following with liturgical music director Dr. Forman in [place], and reports he last had an echocardiogram in April of 2024. He is unsure of what his ejection fraction was but does note that he had a leaky valve and was supposed to have a VALERIA me this coming Friday. He is on metoprolol, midodrine, spironolactone, aspirin, atorvastatin, Entresto, Farxiga and Lasix and endorses compliance without missing any doses. in ed: CBC and metabolic panel that are unremarkable. Lactic acid 1.4. CT abdomen and pelvis was performed that shows concern for AC loop type small-bowel obstruction secondary to possible adhesions or internal hernia. There was noted no evidence of ischemia or infarction. There was also evidence of bladder wall thickening secondary to cystitis or possible outlet obstruction. Patient's urinalysis showing and specific gravity greater than 1.045 and 3+ glucose in the urine otherwise unremarkable. Dr. Perera from general surgery was called per ED provider and agreed to consult and see patient. Pt is started on Protonix IV push daily, Zosyn q.6 hours and IV fluids of normal saline at 125 mL/hour. An NG tube is placed to low wall intermittent suction and patient is made NPO. Pt is seen and examined. water-soluble small bowel follow-through study today. OK to start full liquid today- possible discharge tomorrow if stable/improved. Pt reported few episodes of lose stool so far. NO nausea/vomititng. Review of Systems Review of Systems: All systems reviewed & are unremarkable except as noted in HPI and below Exam Const: General: comfortable HENMT: Face/Nose/Sinus: Normal nares present Other: NG tube present Eyes: General: appearance normal, both eyes and all related structures Neck: Neck: supple and no JVD Resp: Effort & Inspection: normal respiratory effort Auscultation: clear to auscultation bilaterally Cardio: Rate: regular rate Rhythm: regular rhythm Heart sounds: no gallops, Murmur heart sound present and no rubs Other: grade 2-3 diastolic GI: Auscultation: abnormal bowel sounds ( decreased throughout) Other: flat Skin: General skin exam: normal color, no rashes or lesions noted and no erythema Wounds: no wounds Neuro: General: gait normal Speech: normal speech Motor exam (neuro): 5/5 motor strength present throughout and Normal motor muscle tone present throughout Sensory Exam: normal sensation Extrem: General: normal to inspection, no edema and no pedal edema Psych: Mental Status: mental status grossly normal Affect: normal affect Objective Data Vital Signs Vital Signs: Vital Signs - 24 hr 06/12/24 14:25 06/12/24 17:58 06/12/24 18:48 Temperature 97.9 F Pulse Rate 67 71 71 Respiratory Rate 16 16 16 Blood Pressure 140/90 128/71 128/76 Pulse Oximetry 99 100 100 Oxygen Delivery Room Air Fraction of Inspired Oxygen 06/12/24 21:06 06/12/24 23:28 06/13/24 05:49 Temperature 97.5 F L Pulse Rate 70 66 Respiratory Rate 16 20 Blood Pressure 111/59 L 102/58 L Pulse Oximetry 97 96 Oxygen Delivery Room Air Fraction of Inspired Oxygen 21 06/13/24 06:07 Temperature 98.6 F Pulse Rate 63 Respiratory Rate 18 Blood Pressure Pulse Oximetry 95 Oxygen Delivery Fraction of Inspired Oxygen Intake/Output Intake/Output: Intake & Output 06/10/24 06/11/24 06/12/24 06/13/24 23:59 23:59 23:59 23:59 Intake Total 1048.3 1100 Output Total 100 Balance 1048.3 1000 Meds/Results Medications: Active Medications Generic Name Dose Route Start Last Admin Trade Name Freq PRN Reason Stop Dose Admin Dextrose 12.5 gm 06/12/24 17:29 Dextrose 50% 25 Gm/50 Ml Syringe IV PUSH PRN PRN Hypoglycemia Protocol Glucagon 1 mg 06/12/24 17:29 Glucagon For Inj 1 Mg Vial IM PRN PRN Hypoglycemia Protocol Glucose 15 gm 06/12/24 17:29 Glucose Oral Gel 15 Gm Of Glucse In 37.5 Gm Tube PO PRN PRN Hypoglycemia Protocol Hydromorphone HCl 1 mg 06/12/24 19:17 06/12/24 21:22 Hydromorphone Hcl Inj (*Crx) 2 Mg/Ml Vial IV PUSH 1 mg Q4H PRN Administration Pain Rated 7-10 Sodium Chloride 1,000 mls @ 125 mls/hr 06/12/24 17:00 06/13/24 09:25 Normal Saline Iv IV CONT Not Given .Q8H AMBERLY Piperacillin/Tazobactam/Dextrose 3.375 gm in 50 mls @ 100 mls/hr 06/13/24 00:0 0 06/13/24 12:10 Zosyn 3.375 Gm/Ns 50 Ml IVPB 100 mls/hr Q6H AMBERLY Administration Dextrose 1,000 mls @ 100 mls/hr 06/12/24 17:29 Dextrose 5% 1,000 Ml IVPB PRN PRN Hypoglycemia Protocol Ondansetron HCl 4 mg 06/12/24 17:29 Ondansetron Inj 4 Mg/2 Ml Vial IV PUSH Q4H PRN Nausea Pantoprazole Sodium 40 mg 06/13/24 09:00 06/13/24 09:02 Pantoprazole Sodium Iv 40 Mg Vial IV PUSH 40 mg QAM AMBERLY Administration Radiology Results: ITS Impressions Abdomen/Pelvis CT 06/12/24 16:01 IMPRESSION: Findings concerning for a C-loop-type small bowel obstruction, possibly due to adhesion or internal hernia. No CT evidence of bowel ischemia/infarction. Bladder wall thickening which may be secondary to cystitis or outlet obstruction from prostatomegaly. Results reported telephonically to Zandra Good PA-C by Dr. Dhaliwal at 4:15 PM on 06/12/2024. Abdomen X-Ray 06/12/24 19:20 IMPRESSION: NG tube, in good position. Labs Labs: Laboratory Results - last 24 hr 06/12/24 06/12/24 06/12/24 15:07 15:47 17:40 WBC 10.8 H RBC 4.72 Hgb 13.8 L Hct 43.1 MCV 91.3 MCH 29.2 MCHC 32.0 RDW 13.6 Plt Count 263 MPV 11.0 H Immature Gran % (Auto) 0.5 Neut % (Auto) 84.1 H Lymph % (Auto) 10.9 L [place] % (Auto) 4.2 Eos % (Auto) 0.1 Baso % (Auto) 0.2 Lymph # (Auto) 1.18 [place] # (Auto) 0.5 Eos # (Auto) 0.0 Baso # (Auto) 0.0 Abs Immat Gran (auto) 0.05 H Absolute Neuts (auto) 9.1 H Absolute Nucleated RBC 0.000 Nucleated RBC % 0.0 PT INR Sodium 141 Potassium 3.9 Chloride 103 Carbon Dioxide 28 Anion Gap 10 BUN 17 Creatinine 1.04 Estim Creat Clear Calc 69 Estimated GFR > 60 Glucose 116 H Lactic Acid 1.4 Calcium 9.5 Total Bilirubin 0.5 AST 24 ALT 25 Alkaline Phosphatase 97 Total Protein 8.0 Albumin 4.8 Lipase 51 Urine Color Yellow Urine Appearance Clear Urine pH 6.0 Ur Specific [place] > 1.045 H Urine Protein Negative Urine Glucose (UA) 3+ H Urine Ketones Negative Ur Blood (Man) Negative Urine Nitrate Negative Urine Bilirubin Negative Urine Urobilinogen 0.2 Leukocyte Esterase Rfl Negative Influenza A (RT-PCR) Negative Influenza B (RT-PCR) Negative RSV (RT-PCR) Negative SARS-CoV-2 RNA (RT-PCR) Negative Blood Type Antibody Screen 06/13/24 05:54 WBC 6.9 RBC 4.18 L Hgb 12.1 L Hct 39.0 L MCV 93.3 MCH 28.9 MCHC 31.0 L RDW 14.0 Plt Count 209 MPV 10.7 H Immature Gran % (Auto) 0.3 Neut % (Auto) 67.4 Lymph % (Auto) 22.2 [place] % (Auto) 8.9 H Eos % (Auto) 0.9 Baso % (Auto) 0.3 Lymph # (Auto) 1.54 [place] # (Auto) 0.6 Eos # (Auto) 0.1 Baso # (Auto) 0.0 Abs Immat Gran (auto) 0.02 Absolute Neuts (auto) 4.7 Absolute Nucleated RBC 0.000 Nucleated RBC % 0.0 PT 15.2 H INR 1.2 Sodium 142 Potassium 4.2 Chloride 108 H Carbon Dioxide 26 Anion Gap 8 BUN 15 Creatinine 1.04 Estim Creat Clear Calc 69 Estimated GFR > 60 Glucose 96 Lactic Acid Calcium 8.4 Total Bilirubin 0.5 AST 22 ALT 20 Alkaline Phosphatase 79 Total Protein 6.0 L Albumin 3.9 Lipase Urine Color Urine Appearance Urine pH Ur Specific [place] Urine Protein Urine Glucose (UA) Urine Ketones Ur Blood (Man) Urine Nitrate Urine Bilirubin Urine Urobilinogen Leukocyte Esterase Rfl Influenza A (RT-PCR) Influenza B (RT-PCR) RSV (RT-PCR) SARS-CoV-2 RNA (RT-PCR) Blood Type A Positive Antibody Screen Negative Quality VTE Prophylaxis VTE prophylaxis: mechanical ordered
[2024-06-13 14:00] VITALS: BP 148/67; PULSE 65; RESP 16; TEMP 36.8; O2SAT 100
--- NOTE | 2024-06-13 14:10 | P.PN_ITS ---
Progress Note: A&P Assessment and Plan (1) Small bowel obstruction: Code(s): K56.609 - Unspecified intestinal obstruction, unspecified as to partial versus complete obstruction Status: Acute Assessment and Plan: Partial small-bowel obstruction seems to be resolving. Contrast has reached the colon at about hour. He has started have bowel movements. Can go ahead and remove the NG tube and start on clear liquids today. Likely advanced to solid food tomorrow and then probably discharge. Subjective Date/time seen: 06/13/24 14:10 Interval history: Patient doing well today. No nausea or vomiting. No abdominal pain. Water- soluble small bowel series has started and 1hour films appear to show contrast in the right colon on my interpretation of the images. I just saw him his room and he states he has been having bowel movements for about 30minutes now. He otherwise feels good. Exam GI: Other: Abdomen is soft and nondistended. Nontender and benign. Objective Data Vital Signs Vital Signs: Vital Signs - 24 hr 06/12/24 14:25 06/12/24 17:58 06/12/24 18:48 Temperature 36.6 C Pulse Rate 67 71 71 Respiratory Rate 16 16 16 Blood Pressure 140/90 128/71 128/76 Pulse Oximetry 99 100 100 Oxygen Delivery Room Air Fraction of Inspired Oxygen 06/12/24 21:06 06/12/24 23:28 06/13/24 05:49 Temperature 36.4 C L Pulse Rate 70 66 Respiratory Rate 16 20 Blood Pressure 111/59 L 102/58 L Pulse Oximetry 97 96 Oxygen Delivery Room Air Fraction of Inspired Oxygen 21 06/13/24 06:07 Temperature 37.0 C Pulse Rate 63 Respiratory Rate 18 Blood Pressure Pulse Oximetry 95 Oxygen Delivery Fraction of Inspired Oxygen Intake/Output Intake/Output: Intake & Output 06/10/24 06/11/24 06/12/24 06/13/24 23:59 23:59 23:59 23:59 Intake Total 1048.3 1100 Output Total 100 Balance 1048.3 1000 Meds/Results Medications: Active Medications Generic Name Dose Route Start Last Admin Trade Name Freq PRN Reason Stop Dose Admin Dextrose 12.5 gm 06/12/24 17:29 Dextrose 50% 25 Gm/50 Ml Syringe IV PUSH PRN PRN Hypoglycemia Protocol Glucagon 1 mg 06/12/24 17:29 Glucagon For Inj 1 Mg Vial IM PRN PRN Hypoglycemia Protocol Glucose 15 gm 06/12/24 17:29 Glucose Oral Gel 15 Gm Of Glucse In 37.5 Gm Tube PO PRN PRN Hypoglycemia Protocol Hydromorphone HCl 1 mg 06/12/24 19:17 06/12/24 21:22 Hydromorphone Hcl Inj (*Crx) 2 Mg/Ml Vial IV PUSH 1 mg Q4H PRN Administration Pain Rated 7-10 Sodium Chloride 1,000 mls @ 125 mls/hr 06/12/24 17:00 06/13/24 09:25 Normal Saline Iv IV CONT Not Given .Q8H AMBERLY Piperacillin/Tazobactam/Dextrose 3.375 gm in 50 mls @ 100 mls/hr 06/13/24 00:00 06/13/24 12:10 Zosyn 3.375 Gm/Ns 50 Ml IVPB 100 mls/hr Q6H AMBERLY Administration Dextrose 1,000 mls @ 100 mls/hr 06/12/24 17:29 Dextrose 5% 1,000 Ml IVPB PRN PRN Hypoglycemia Protocol Ondansetron HCl 4 mg 06/12/24 17:29 Ondansetron Inj 4 Mg/2 Ml Vial IV PUSH Q4H PRN Nausea Pantoprazole Sodium 40 mg 06/13/24 09:00 06/13/24 09:02 Pantoprazole Sodium Iv 40 Mg Vial IV PUSH 40 mg QAM AMBERLY Administration Radiology Results: ITS Impressions Abdomen/Pelvis CT 06/12/24 16:01 IMPRESSION: Findings concerning for a C-loop-type small bowel obstruction, possibly due to adhesion or internal hernia. No CT evidence of bowel ischemia/infarction. Bladder wall thickening which may be secondary to cystitis or outlet obstruction from prostatomegaly. Results reported telephonically to Zandra Good PA-C by Dr. Dhaliwal at 4:15 PM on 06/12/2024. Abdomen X-Ray 06/12/24 19:20 IMPRESSION: NG tube, in good position. Labs Labs: Laboratory Results - last 24 hr 06/12/24 06/12/24 06/12/24 15:07 15:47 17:40 WBC 10.8 H RBC 4.72 Hgb 13.8 L Hct 43.1 MCV 91.3 MCH 29.2 MCHC 32.0 RDW 13.6 Plt Count 263 MPV 11.0 H Immature Gran % (Auto) 0.5 Neut % (Auto) 84.1 H Lymph % (Auto) 10.9 L [place] % (Auto) 4.2 Eos % (Auto) 0.1 Baso % (Auto) 0.2 Lymph # (Auto) 1.18 [place] # (Auto) 0.5 Eos # (Auto) 0.0 Baso # (Auto) 0.0 Abs Immat Gran (auto) 0.05 H Absolute Neuts (auto) 9.1 H Absolute Nucleated RBC 0.000 Nucleated RBC % 0.0 PT INR Sodium 141 Potassium 3.9 Chloride 103 Carbon Dioxide 28 Anion Gap 10 BUN 17 Creatinine 1.04 Estim Creat Clear Calc 69 Estimated GFR > 60 Glucose 116 H Lactic Acid 1.4 Calcium 9.5 Total Bilirubin 0.5 AST 24 ALT 25 Alkaline Phosphatase 97 Total Protein 8.0 Albumin 4.8 Lipase 51 Urine Color Yellow Urine Appearance Clear Urine pH 6.0 Ur Specific [place] > 1.045 H Urine Protein Negative Urine Glucose (UA) 3+ H Urine Ketones Negative Ur Blood (Man) Negative Urine Nitrate Negative Urine Bilirubin Negative Urine Urobilinogen 0.2 Leukocyte Esterase Rfl Negative Influenza A (RT-PCR) Negative Influenza B (RT-PCR) Negative RSV (RT-PCR) Negative SARS-CoV-2 RNA (RT-PCR) Negative Blood Type Antibody Screen 06/13/24 05:54 WBC 6.9 RBC 4.18 L Hgb 12.1 L Hct 39.0 L MCV 93.3 MCH 28.9 MCHC 31.0 L RDW 14.0 Plt Count 209 MPV 10.7 H Immature Gran % (Auto) 0.3 Neut % (Auto) 67.4 Lymph % (Auto) 22.2 [place] % (Auto) 8.9 H Eos % (Auto) 0.9 Baso % (Auto) 0.3 Lymph # (Auto) 1.54 [place] # (Auto) 0.6 Eos # (Auto) 0.1 Baso # (Auto) 0.0 Abs Immat Gran (auto) 0.02 Absolute Neuts (auto) 4.7 Absolute Nucleated RBC 0.000 Nucleated RBC % 0.0 PT 15.2 H INR 1.2 Sodium 142 Potassium 4.2 Chloride 108 H Carbon Dioxide 26 Anion Gap 8 BUN 15 Creatinine 1.04 Estim Creat Clear Calc 69 Estimated GFR > 60 Glucose 96 Lactic Acid Calcium 8.4 Total Bilirubin 0.5 AST 22 ALT 20 Alkaline Phosphatase 79 Total Protein 6.0 L Albumin 3.9 Lipase Urine Color Urine Appearance Urine pH Ur Specific [place] Urine Protein Urine Glucose (UA) Urine Ketones Ur Blood (Man) Urine Nitrate Urine Bilirubin Urine Urobilinogen Leukocyte Esterase Rfl Influenza A (RT-PCR) Influenza B (RT-PCR) RSV (RT-PCR) SARS-CoV-2 RNA (RT-PCR) Blood Type A Positive Antibody Screen Negative
[2024-06-13] MEDS: SODIUM CHLORIDE 0.9% IV 1,000 ML 90 ML IV CONT (18:22)
[2024-06-13 21:29] VITALS: BP 107/66; PULSE 69; RESP 20; TEMP 36.5; O2SAT 100
[2024-06-14 06:00] VITALS: BP 121/76; PULSE 59; RESP 20; TEMP 36.7; O2SAT 99
[2024-06-14] MEDS: PANTOPRAZOLE 40 MG TABLET PO (09:09)
--- NOTE | 2024-06-14 09:11 | P.DS_ITS ---
DS: Admitting Diagnosis Discharge Date 06/14/2024 Admitting Diagnosis SBO DS: Discharge Diagnosis Discharge Diagnosis (1) Small bowel obstruction: Code(s): K56.609 - Unspecified intestinal obstruction, unspecified as to partial versus complete obstruction Status: Acute Assessment and Plan: * As evidence by CT scan showing C loop type small-bowel obstruction secondary to possible adhesions or internal hernia. No noted evidence of ischemia or infarction. There is bladder wall thickening secondary to cystitis or bladder Outlet obstruction. * General surgery Dr. Perera is consulted and will manage along with medicine. * NPO * Protonix 40 mg IVP daily * Zosyn Q6 hrs per surgery * IVF for hydration w/NS at 125 ml/hr - since D/C with advanced diet tolerance * NG to LWIS. - D/C 06/13 * PRN anti-emetics and pain meds. * Monitor and trend labs and VS. * SBFT ordered by surgery. * surgery is following * Follow lactic acid levels, started on IV antibiotics-continue * no lovenox/heparin for now- SCD for dvt prophylaxis * Per nursing, Surg recs OK to D/C with no rx. (2) Coronary artery disease: Code(s): I25.10 - Atherosclerotic heart disease of [place] coronary artery without angina pectoris Status: Chronic Assessment and Plan: * Patient with history of coronary artery disease and PCI x2 as well as CABG x1 * Supposed to have VALERIA on Friday. * Will request records from [facility] recs as pt has extensive cardiac history. * Consider repeating ECHO * Consider Cardiology consult if pts condition deteriorates. * Telemetry - pt has been stable throughout admission, plan to keep appt and procedure with outpt surgical physician assistant this week. * Obtain EKG given pt's extensive cardiac hx. * Restarted daily medications 5/5 before D/C (3) Hyperlipidemia: Code(s): E78.5 - Hyperlipidemia, unspecified Status: Chronic Assessment and Plan: * Heart healthy diet. * Restarted daily medications 5/5 before D/C Plan SBO resolved with bowel rest. Pt now tolerating food well with BMs. Pending GI note then D/C. DS: Summary Hospital Course Reason for hospitalization: SBO Hospital Course: Patient is a pleasant 58-year-old male with a past medical history of coronary artery disease status post CABG, testicular cancer, hyperlipidemia, placement of internal defibrillator, and prior cholecystectomy who comes to the emergency department on June 12 for complaints of lower abdominal pain with nausea, vomiting, and diarrhea. patient reports that he is not from the area but his girlfriend is in he was at her house and this happened. Patient sees Cardiology and PCP out by his house in [place], [place]. In the emergency department his labs were stable other than a small white count of 10.8, which has since resolved, and a abd/pelvis CT which yielded Findings concerning for a C-loop-type small bowel obstruction, possibly due to adhesion or internal hernia. No CT evidence of bowel ischemia/infarction. Bladder wall thickening which may be secondary to cystitis or outlet obstruction from prostatomegaly. negative for UTI. Surgery was consulted in the emergency department with recs for NG placement for bowel rest, Protonix daily Zosyn Q 6 and IV fluids. Yesterday patient was advanced to a full liquid diet which was tolerated well, today has been tolerating regular diet well. Abx since D/C'd. Per surgery Jennifer [place], OK to D/C without rx, To f/u with PCP. Status at Discharge Cognitive/behavioral status at discharge: Stable Functional status at discharge: independent ambulation Overall status at discharge: patient is back to baseline Time Spent with Patient Time attestation: Total time spent providing and/or coordinating discharge services: Time spent: Less than 30 minutes Exam Const: General: comfortable and no acute distress HENMT: Face/Nose/Sinus: Normal nares present Mouth: Yes moist mucous membranes Eyes: General: appearance normal, both eyes and all related structures [place]: sclerae normal Neck: Neck: supple and no JVD Carotids: no bruits Resp: Effort & Inspection: normal respiratory effort Auscultation: clear to auscultation bilaterally Cardio: Rate: regular rate Rhythm: regular rhythm GI: Inspection: non-distended GI Palp: Yes Soft to palpation and No Tenderness to palpation present (GI) Auscultation: normal bowel sounds Skin: General skin exam: normal color and no rashes or lesions noted Wounds: no wounds Neuro: Motor exam (neuro): Normal motor muscle tone present throughout Sensory Exam: normal sensation Extrem: General: normal to inspection Psych: Mental Status: mental status grossly normal Affect: normal affect DS: Data Data Completed and Pending Completed studies during hospitalization: Abd/pelvis CT, abd XR, SBFT XR Discharge Plan Discharge Attending physician on discharge: Kitty Arrieta Consulting providers: Vincenzo Perera Discharging Clinician: Kitty Arrieta Anticipated Discharge Date/Time: 06/14/24 12:30 Patient Disposition: Home Activity: unlimited Diet: heart healthy Discharge Instructions: 1. Resume all of your home medication 2. Resume a regular cardiac diet as tolerated 3. Come back to the ER or the closest ER to you if you have persistent abdominal pain. 4. Follow-up with your primary care provider to let them know about this admission. Patient Instructions: Antibiotic Form, Bowel Obstruction (GEN) Patient Language: Divehi Stand Alone Forms: General Discharge Information Follow-up/Referrals: Ro Davis [Other] - 4 Weeks (F/u for small bowel obstruction) Discharge Medications: Continued atorvastatin 80 mg tablet 80 mg PO QPM furosemide 20 mg tablet 20 mg PO DAILY metoprolol succinate 25 mg tablet extended release 24 hr 25 mg PO HS midodrine 5 mg tablet 5 mg PO TIDWM Entresto 24-26 mg tablet 1 tablet PO BID sertraline 100 mg tablet 100 mg PO DAILY spironolactone 25 mg tablet 25 mg PO DAILY dapagliflozin propanediol [Farxiga] 10 mg tablet 10 mg PO DAILY aspirin 81 mg capsule 81 mg PO DAILY Date of admission: 06/13/24 08:06 Primary Care Provider: Ro Davis Admitting Provider: Genna Alberto Attending physician on admission: Simona Lewis Condition: Stable Quality VTE Prophylaxis VTE prophylaxis: mechanical ordered Hospitalist MIPS Heart Failure (Exclusion) Patient has history of Heart Transplant or Left Ventricular Assistive Device?: No IF YES, STOP HERE Heart Failure (Qualifier) Patient has current or prior documentation of LVEF less than or equal to 40%, or mod/servere depressed LVSF?: No IF NO, STOP HERE If Yes, Heart Failure (Qualifier) Patient was prescribed or already taking an Angiotensin-Converting Enzyme (SHELLY) Inhibitor, or Antiotensin Receptor Dax (ARB): Yes Patient was prescribed or already taking bisoprolol, carvedilol, or sustained release metoprolol succinate: Yes
[2024-06-14] MEDS: SACUBITRIL/VALSARTAN 24-26 MG TABLET 1 TAB PO (10:53)
[2024-06-14] MEDS: FUROSEMIDE 20 MG TABLET PO (10:53)
[2024-06-14] MEDS: ASPIRIN 81 MG CHEWABLE TABLET PO (10:53)
[2024-06-14] MEDS: EMPAGLIFLOZIN 25 MG TABLET BY MOUTH (10:53)
[2024-06-14] MEDS: SPIRONOLACTONE 25 MG TABLET PO (10:54)
[2024-06-14] MEDS: SERTRALINE HCL 50 MG TABLET 100 MG PO (10:54)
--- NOTE | 2024-06-14 12:12 | P.PNGS_ITS ---
Progress Note: A&P Assessment and Plan (1) Small bowel obstruction: Code(s): K56.609 - Unspecified intestinal obstruction, unspecified as to partial versus complete obstruction Status: Acute Assessment and Plan: * Resolved. Tolerating solid food and bowels are moving. He is surgically stable for discharge.. Follow-up only as needed. Plan I have discussed the patient's case and plan of care with Dr. Perera. Subjective Subjective Date/Time Seen: 06/14/24 12:12 Patient reports: no new complaints, tolerating a regular diet, flatus and bowel movement Interval history: Patient denies any abdominal pain or nausea. Tolerating solid foods. Multiple bowel movements overnight and this morning. Exam GI: Inspection: non-distended GI Palp: Yes Soft to palpation, No Tenderness to palpation present (GI), No Guarding due to palpation present (GI) and No Rebo und tenderness present Auscultation: normal bowel sounds Objective Data Vital Signs Vital Signs: Vital Signs - 24 hr 06/13/24 14:00 06/13/24 20:00 06/13/24 21:29 Temperature 98.3 F 97.7 F Pulse Rate 65 69 Respiratory Rate 16 20 Blood Pressure 148/67 H 107/66 Pulse Oximetry 100 100 Oxygen Delivery Room Air 06/14/24 06:00 06/14/24 08:00 Temperature 98.1 F Pulse Rate 59 L Respiratory Rate 20 Blood Pressure 121/76 Pulse Oximetry 99 Oxygen Delivery Room Air Intake/Output Intake/Output: Intake & Output 06/11/24 06/12/24 06/13/24 06/14/24 23:59 23:59 23:59 23:59 Intake Total 1048.3 3780 480 Output Total 450 Balance 1048.3 3330 480 Meds/Results Medications: Active Medications Generic Name Dose Route Start Last Admin Trade Name Freq PRN Reason Stop Dose Admin Aspirin 81 mg 06/14/24 10:00 06/14/24 10:53 Aspirin 81 Mg Chewable Tablet PO 07/14/24 09:59 81 mg DAILY AMBERLY Administration Atorvastatin Calcium 80 mg 06/14/24 18:00 Atorvastatin 40 Mg Tablet PO QPM AMBERLY Dextrose 12.5 gm 06/12/24 17:29 Dextrose 50% 25 Gm/50 Ml Syringe IV PUSH PRN PRN Hypoglycemia Protocol Empagliflozin 25 mg 06/14/24 10:00 06/14/24 10:53 Empagliflozin 25 Mg Tablet BY MOUTH 25 mg DAILY AMBERLY Administration Furosemide 20 mg 06/14/24 10:00 06/14/24 10:53 Furosemide 20 Mg Tablet PO 20 mg DAILY AMBERLY Administration Glucagon 1 mg 06/12/24 17:29 Glucagon For Inj 1 Mg Vial IM PRN PRN Hypoglycemia Protocol Glucose 15 gm 06/12/24 17:29 Glucose Oral Gel 15 Gm Of Glucse In 37.5 Gm Tube PO PRN PRN Hypoglycemia Protocol Hydromorphone HCl 1 mg 06/12/24 19:17 06/12/24 21:22 Hydromorphone Hcl Inj (*Crx) 2 Mg/Ml Vial IV PUSH 1 mg Q4H PRN Administration Pain Rated 7-10 Dextrose 1,000 mls @ 100 mls/hr 06/12/24 17:29 Dextrose 5% 1,000 Ml IVPB PRN PRN Hypoglycemia Protocol Metoprolol Succinate 25 mg 06/14/24 21:00 Metoprolol Succinate Ext Rel 25 Mg Tabcr PO HS [facility] Midodrine 5 mg 06/14/24 12:00 Midodrine Hcl 2.5 Mg Tablet PO TIDWM AMBERLY Ondansetron HCl 4 mg 06/12/24 17:29 Ondansetron Inj 4 Mg/2 Ml Vial IV PUSH Q4H PRN Nausea Pantoprazole Sodium 40 mg 06/14/24 09:00 06/14/24 09:09 Pantoprazole 40 Mg Tablet PO 40 mg QAM AMBERLY Administration Sacubitril/Valsartan 1 tab 06/14/24 10:00 06/14/24 10:53 Sacubitril/Valsartan 24-26 Mg Tablet PO 1 tab Q12HR AMBERLY Administration Sertraline HCl 100 mg 06/14/24 10:00 06/14/24 10:54 Sertraline Hcl 50 Mg Tablet PO 100 mg DAILY AMBERLY Administration Spironolactone 25 mg 06/14/24 10:00 06/14/24 10:54 Spironolactone 25 Mg Tablet PO 25 mg DAILY AMBERLY Administration Radiology Results: ITS Impressions Abdomen/Pelvis CT 06/12/24 16:01 IMPRESSION: Findings concerning for a C-loop-type small bowel obstruction, possibly due to adhesion or internal hernia. No CT evidence of bowel ischemia/infarction. Bladder wall thickening which may be secondary to cystitis or outlet obstruction from prostatomegaly. Results reported telephonically to Zandra Good PA-C by Dr. Dhaliwal at 4:15 PM on 06/12/2024. Abdomen X-Ray 06/12/24 19:20 IMPRESSION: NG tube, in good position. Upper GI and Small Bowel X-Ray 06/14/24 08:18 IMPRESSION: No evidence of obstruction seen. Contrast is seen in the large bowel.
== END 2024-06-14 12:45 | disposition home or self-care (01) | DRG 390 ==
LOC: ANHED 17:04 → ANH3MEDSUR 18:22
PROVIDERS: Emergency Medicine; Surgery; Admitting Provider Internal Medicine; Emergency Provider Physician Assistant
DX: K56.609 Unspecified intestinal obstruction, unspecified as to partial versus complete obstruction (principal); I25.10 Atherosclerotic heart disease of native coronary artery without angina pectoris; E78.5 Hyperlipidemia, unspecified; Z20.822 Contact with and (suspected) exposure to COVID-19; Z79.82 Long term (current) use of aspirin; Z85.47 Personal history of malignant neoplasm of testis; Z95.810 Presence of automatic (implantable) cardiac defibrillator; Z95.5 Presence of coronary angioplasty implant and graft
CPT/HCPCS: 36415; 74177; 74250; 80053; 81003; 83605; 83690; 85025; 85610; 86850; 86900; 86901; 87637; 93005; 96361; 96365; 96366; 96375; 96376; 99285; A9270; G0378; J1171; J2270; J2405; J2470; J2543; J7030; Q9967